=== PATIENT | male | born 1975 | race Caucasian/White ===

== ENCOUNTER 2023-07-26 07:14 | Emergency (ER) | payer OTHER ==
[2023-07-26] MEDS: Ondansetron 4 MG Tab.DIS PO ONE (07:52)
[2023-07-26] MEDS: Acetaminophen 500 MG Tab PO ONE (07:53)
[2023-07-26] MEDS: Ibuprofen 400 MG Tab PO ONE (08:07)
== END 2023-07-26 09:22 | disposition home or self-care (01) ==
LOC: MW.ED 07:14
DX: S06.0X0A Concussion without loss of consciousness, initial encounter (principal); F17.210 Nicotine dependence, cigarettes, uncomplicated; Z88.5 Allergy status to narcotic agent; Z79.899 Other long term (current) drug therapy; W20.8XXA Other cause of strike by thrown, projected or falling object, initial encounter
CPT/HCPCS: 70450; 72125; 99285; A9270; 99283

== ENCOUNTER 2024-12-01 00:42 | Emergency (ER) | payer MEDICAID, OTHER | END 2024-12-01 01:21 | LOC: MW.ED 00:42 | DX: F10.129 Alcohol abuse with intoxication, unspecified (principal); F17.200 Nicotine dependence, unspecified, uncomplicated; I10 Essential (primary) hypertension; Z88.5 Allergy status to narcotic agent; Y90.9 Presence of alcohol in blood, level not specified; Z75.3 Unavailability and inaccessibility of health-care facilities | CPT/HCPCS: 99283; 99284 ==